=== PATIENT | male | born 1960 | race Caucasian/White ===

== ENCOUNTER 2016-09-24 15:11 | Emergency (ER) | payer OTHER ==
[2016-09-24] MEDS ORDERED: Sodium Chloride 0.9% 2.5 ML Syringe FLUSH PRN (15:32)
[2016-09-24] MEDS ORDERED: Sodium Chloride 0.9% 10 ML Syringe FLUSH PRN (15:32)
[2016-09-24] MEDS ORDERED: Morphine 2 MG/ML Syringe IVPUSH ONE (15:33)
[2016-09-24] MEDS ORDERED: Sodium Chloride 0.9% 1,000 ML IV ONE (15:33)
[2016-09-24] MEDS ORDERED: Ondansetron 4 MG/2 ML SDV IVPUSH ONE (15:33)
--- NOTE | 2016-09-24 15:34 | EDM.PDOC ---
ED HISTORY OF PRESENT ILLNESS - General Chief Complaint: Respiratory Problem Stated Complaint: COLLAPSED LUNG, FLUID Time Seen by Provider: 09/24/16 15:13 Source of Information: Reports: Patient History Limitations: Reports: No limitations - History of Present Illness INITIAL COMMENTS - FREE TEXT/NARRATIVE: History of present illness: [] 3 days ago patient was [place] on a bump[place] road and had to wear a mask he felt a sudden pain in his right lower chest. He had to do this 2 more times each time the pain got worse and shortness of breath worsened. Today he woke up with fevers and chills decided to be evaluated. Patient denies having any other chest wall trauma or previous injury or history of collapsed lungs. Review of systems: As per history of present illness and below otherwise all systems reviewed and negative. Past medical history: As per history of present illness and as reviewed below otherwise noncontributory. Surgical history: As per history of present illness and as reviewed below otherwise noncontributory. Social history: No reported history of drug or alcohol abuse. Family history: As per history of present illness and as reviewed below otherwise noncontributory. Physical exam: General: Well developed, well nourished in NAD HEENT: Atraumatic, normocephalic, pupils reactive, negative for conjunctival pallor or scleral icterus, mucous membranes moist, throat clear, neck supple, nontender, trachea midline. Lungs: Clear to auscultation, breath sounds equal bilaterally, chest nontender. Heart: S1S2, regular, negative for clicks, rubs, or JVD. Abdomen: Soft, nondistended, nontender. Negative for masses or hepatosplenomegaly. Negative for costovertebral tenderness. Pelvis: Stable nontender. Genitourinary: Deferred. Rectal: Deferred. Extremities: Atraumatic, negative for cords or calf pain. Neurovascular unremarkable. Neuro: Awake, alert, oriented. Cranial nerves II through XII unremarkable. Cerebellum unremarkable. Motor and sensory unremarkable throughout. Exam nonfocal. Diagnostics: []ct chest showing pneumonia with parapneumonic effusion. also a 5mm lung nodule Therapeutics: []IV abx, ceftriaxone and zithromax given Impression: []pneumonia Plan: []Pt refuses admission and wants to go home lowest 02 sats are 92 %, but will send home with inhalers, abx and pain meds Definitive disposition and diagnosis as appropriate pending reevaluation and review of above. - Related Data Allergies/ADRs: Allergies Allergy/AdvReac Type Severity Reaction Status Date / Time No Known Allergies Allergy Verified 09/24/16 15:27 Home Meds: Home Meds Azithromycin [Zithromax] 250 mg PO DAILY #6 tablet 09/24/16 [Rx] Lisinopril 20 mg PO DAILY 09/24/16 [History] traMADol HCl [Tramadol HCl] 50 mg PO Q6H PRN #20 tablet 09/24/16 [Rx] ED ROS GENERAL - Review of Systems Review Of Systems: See Below (See history of present illness) ED EXAM, GENERAL - Physical Exam Exam: See Below (History of present illness) Course - Vital Signs Last Recorded V/S: Last Vital Signs Temp 38.7 C H 09/24/16 15:28 Pulse 101 H 09/24/16 15:28 Resp 18 09/24/16 15:28 BP 135/78 09/24/16 15:28 Pulse Ox 94 L 09/24/16 15:28 - Orders/Labs/Meds Orders: Active Orders 24 hr Category Date Time Status Chest w Cont [CT] Stat Exams 09/24/16 16:52 Taken CULTURE BLOOD [BC] Stat Lab 09/24/16 16:12 Received CULTURE BLOOD [BC] Stat Lab 09/24/16 16:39 Received CULTURE URINE [RM] Stat Lab 09/24/16 15:35 Received LACTIC ACID,WHOLE BLOOD [BG] Stat Lab 09/24/16 18:14 Ordered Sodium Chloride 0.9% [Saline Flush] Med 09/24/16 15:32 Active 10 ml FLUSH ASDIRECTED PRN Sodium Chloride 0.9% [Saline Flush] Med 09/24/16 15:32 Active 2.5 ml FLUSH ASDIRECTED PRN cefTRIAXone [Rocephin in Dextrose,Iso-Osm 1 GM/50 ML] 1 Med 09/24/16 18:17 Ordered gm Premix Bag 1 bag IV ONETIME Blood Culture x2 Reflex Set [OM.PC] Stat Oth 09/24/16 15:59 Ordered Peripheral IV Insertion Adult [OM.PC] Stat Oth 09/24/16 15:32 Ordered Medication Orders Ceftriaxone Sodium/Dextrose 1 (gm/ Premix) 50 mls @ 100 mls/hr IV ONETIME ONE Stop: 09/24/16 18:46 Sodium Chloride (Saline Flush) 10 ml FLUSH ASDIRECTED PRN PRN Reason: Keep Vein Open Sodium Chloride (Saline Flush) 2.5 ml FLUSH ASDIRECTED PRN PRN Reason: Keep Vein Open Labs: Laboratory Tests 09/24/16 09/24/16 09/24/16 Range/Units 15:35 15:35 15:35 WBC 16.85 H (4.0-11.0) K/uL RBC 4.53 (4.50-5.90) M/uL Hgb 13.9 (13.0-17.0) g/dL Hct 41.7 (38.0-50.0) % MCV 92.1 (80.0-98.0) fL MCH 30.7 (27.0-32.0) pg MCHC 33.3 (31.0-37.0) g/dL RDW Std Deviation 44.0 (28.0-62.0) fl RDW Coeff of Joanna 13 (11.0-15.0) % Plt Count 306 (150-400) K/uL MPV 9.70 (7.40-12.00) fL Neut % (Auto) 81.9 H (48.0-80.0) % Lymph % (Auto) 9.0 L (16.0-40.0) % [place] % (Auto) 7.1 (0.0-15.0) % Eos % (Auto) 1.8 (0.0-7.0) % Baso % (Auto) 0.2 (0.0-1.5) % Neut # (Auto) 13.8 H (1.4-5.7) K/uL Lymph # (Auto) 1.5 (0.6-2.4) K/uL [place] # (Auto) 1.2 H (0.0-0.8) K/uL Eos # (Auto) 0.3 (0.0-0.7) K/uL Baso # (Auto) 0.0 (0.0-0.1) K/uL INR 1.18 H (0.86-1.11) APTT 31.3 (18.6-31.3) SEC Sodium 139 (136-146) mmol/L Potassium 3.6 (3.5-5.1) mmol/L Chloride 102 (98-110) mmol/L Carbon Dioxide 24 (21-31) mmol/L BUN 16 (6.0-23.0) mg/dL Creatinine 1.0 (0.6-1.5) mg/dL Est Cr Clr Drug Dosing TNP Estimated GFR (MDRD) > 60.0 ml/min Glucose 169 H (60-110) mg/dL Calcium 9.6 (8.8-10.8) mg/dL Total Bilirubin 0.6 (0.1-1.5) mg/dL AST 9 (5-40) IU/L ALT 14 (8-54) IU/L Alkaline Phosphatase 83 (40-150) Total Protein 8.0 (6.0-8.0) g/dL Albumin 3.7 (3.5-5.0) g/dL Globulin 4.3 H (2.0-3.5) g/dL Albumin/Globulin Ratio 0.9 L (1.3-2.8) Urine Color Urine Appearance Urine pH (5.0-8.0) Ur Specific [place] (1.001-1.035) Urine Protein (NEGATIVE) mg/dL Urine Glucose (UA) (NEGATIVE) mg/dL Urine Ketones (NEGATIVE) mg/dL Urine Occult Blood (NEGATIVE) Urine Nitrite (NEGATIVE) Urine Bilirubin (NEGATIVE) Urine Urobilinogen (<2.0) EU/dL Ur Leukocyte Esterase (NEGATIVE) Urine RBC (0-2/HPF) Urine WBC (0-5/HPF) Ur Epithelial Cells (NONE-FEW) Urine Bacteria (NEGATIVE) 09/24/16 Range/Units 15:35 WBC (4.0-11.0) K/uL RBC (4.50-5.90) M/uL Hgb (13.0-17.0) g/dL Hct (38.0-50.0) % MCV (80.0-98.0) fL MCH (27.0-32.0) pg MCHC (31.0-37.0) g/dL RDW Std Deviation (28.0-62.0) fl RDW Coeff of Joanna (11.0-15.0) % Plt Count (150-400) K/uL MPV (7.40-12.00) fL Neut % (Auto) (48.0-80.0) % Lymph % (Auto) (16.0-40.0) % [place] % (Auto) (0.0-15.0) % Eos % (Auto) (0.0-7.0) % Baso % (Auto) (0.0-1.5) % Neut # (Auto) (1.4-5.7) K/uL Lymph # (Auto) (0.6-2.4) K/uL [place] # (Auto) (0.0-0.8) K/uL Eos # (Auto) (0.0-0.7) K/uL Baso # (Auto) (0.0-0.1) K/uL INR (0.86-1.11) APTT (18.6-31.3) SEC Sodium (136-146) mmol/L Potassium (3.5-5.1) mmol/L Chloride (98-110) mmol/L Carbon Dioxide (21-31) mmol/L BUN (6.0-23.0) mg/dL Creatinine (0.6-1.5) mg/dL Est Cr Clr Drug Dosing Estimated GFR (MDRD) ml/min Glucose (60-110) mg/dL Calcium (8.8-10.8) mg/dL Total Bilirubin (0.1-1.5) mg/dL AST (5-40) IU/L ALT (8-54) IU/L Alkaline Phosphatase (40-150) Total Protein (6.0-8.0) g/dL Albumin (3.5-5.0) g/dL Globulin (2.0-3.5) g/dL Albumin/Globulin Ratio (1.3-2.8) Urine Color YELLOW Urine Appearance CLEAR Urine pH 7.0 (5.0-8.0) Ur Specific [place] 1.015 (1.001-1.035) Urine Protein NEGATIVE (NEGATIVE) mg/dL Urine Glucose (UA) NEGATIVE (NEGATIVE) mg/dL Urine Ketones NEGATIVE (NEGATIVE) mg/dL Urine Occult Blood NEGATIVE (NEGATIVE) Urine Nitrite NEGATIVE (NEGATIVE) Urine Bilirubin NEGATIVE (NEGATIVE) Urine Urobilinogen 4.0 H (<2.0) EU/dL Ur Leukocyte Esterase NEGATIVE (NEGATIVE) Urine RBC 0-2 (0-2/HPF) Urine WBC 0-1 (0-5/HPF) Ur Epithelial Cells RARE (NONE-FEW) Urine Bacteria RARE (NEGATIVE) Meds: Medications Generic Name Dose Route Start Last Admin Trade Name Freq PRN Reason Stop Dose Admin Ceftriaxone Sodium/Dextrose 1 50 mls @ 100 mls/hr 09/24/16 18:17 gm/ Premix IV 09/24/16 18:46 ONETIME ONE Sodium Chloride 10 ml 09/24/16 15:32 Saline Flush FLUSH ASDIRECTED PRN Keep Vein Open Sodium Chloride 2.5 ml 09/24/16 15:32 Saline Flush FLUSH ASDIRECTED PRN Keep Vein Open Discontinued Medications Generic Name Dose Route Start Last Admin Trade Name Freq PRN Reason Stop Dose Admin Azithromycin 500 mg 09/24/16 18:17 Zithromax PO 09/24/16 18:18 Q24H ONE Sodium Chloride 1,000 mls @ 999 mls/hr 09/24/16 15:33 09/24/16 15:47 Normal Saline IV 09/24/16 16:33 999 mls/hr .Bolus ONE Administration Iopamidol 100 ml 09/24/16 17:08 09/24/16 17:10 Isovue-370 (76%) IVPUSH 09/24/16 17:09 75 ml ONETIME STA Administration Ketorolac Tromethamine 30 mg 09/24/16 15:53 09/24/16 15:57 Toradol IVPUSH 09/24/16 15:54 30 mg ONETIME ONE Administration Morphine Sulfate 4 mg 09/24/16 15:33 09/24/16 15:53 Morphine IVPUSH 09/24/16 15:34 Not Given ONETIME ONE Ondansetron HCl 4 mg 09/24/16 15:33 09/24/16 15:53 Zofran IVPUSH 09/24/16 15:34 Not Given ONETIME ONE Departure - Departure Time of Disposition: 18:24 Disposition: Home, Self-Care 01 Condition: fair Clinical Impression: Pleural effusion Pneumonia Qualifiers: Pneumonia type: due to unspecified organism Laterality: right Lung location: unspecified part of lung Qualified Code(s): J18.9 - Pneumonia, unspecified organism Prescriptions: Azithromycin [Zithromax] 250 mg PO DAILY #6 tablet traMADol HCl [Tramadol HCl] 50 mg PO Q6H PRN #20 tablet PRN Reason: Pain Forms: ED Department Discharge - My Orders Last 24 Hours: My Active Orders 09/24/16 15:32 Sodium Chloride 0.9% [Saline Flush] 10 ml FLUSH ASDIRECTED PRN Sodium Chloride 0.9% [Saline Flush] 2.5 ml FLUSH ASDIRECTED PRN Peripheral IV Insertion Adult [OM.PC] Stat 09/24/16 15:35 CULTURE URINE [RM] Stat 09/24/16 15:59 Blood Culture x2 Reflex Set [OM.PC] Stat 09/24/16 16:12 CULTURE BLOOD [BC] Stat 09/24/16 16:39 CULTURE BLOOD [BC] Stat 09/24/16 16:52 Chest w Cont [CT] Stat 09/24/16 18:14 LACTIC ACID,WHOLE BLOOD [BG] Stat 09/24/16 18:17 cefTRIAXone [Rocephin in Dextrose,Iso-Osm 1 GM/50 ML] 1 gm Premix Bag 1 bag IV ONETIME - Assessment/Plan Last 24 Hours: My Active Orders 09/24/16 15:32 Sodium Chloride 0.9% [Saline Flush] 10 ml FLUSH ASDIRECTED PRN Sodium Chloride 0.9% [Saline Flush] 2.5 ml FLUSH ASDIRECTED PRN Peripheral IV Insertion Adult [OM.PC] Stat 09/24/16 15:35 CULTURE URINE [RM] Stat 09/24/16 15:59 Blood Culture x2 Reflex Set [OM.PC] Stat 09/24/16 16:12 CULTURE BLOOD [BC] Stat 09/24/16 16:39 CULTURE BLOOD [BC] Stat 09/24/16 16:52 Chest w Cont [CT] Stat 09/24/16 18:14 LACTIC ACID,WHOLE BLOOD [BG] Stat 09/24/16 18:17 cefTRIAXone [Rocephin in Dextrose,Iso-Osm 1 GM/50 ML] 1 gm Premix Bag 1 bag IV ONETIME
[2016-09-24] MEDS ORDERED: Ketorolac 30 MG/ML SDV IVPUSH ONE (15:53)
[2016-09-24 16:41] LABS: CHLORIDE,CL 102 mmol/L (98-110); SODIUM,NA 139 mmol/L (136-146)
[2016-09-24] MEDS ORDERED: Iopamidol 755 Mg/ML 100 ML Bottle IVPUSH STA (17:08)
[2016-09-24] MEDS ORDERED: Azithromycin 250 MG Tab PO ONE (18:17)
[2016-09-24] MEDS ORDERED: cefTRIAXone 1 GM in Premix Bag 1 BAG IV ONE (18:17)
[2016-09-24 20:09] VITALS: BP 127/68
--- NOTE | 2016-09-25 10:15 | CT ---
EXAM DATE: 09/24/16 PATIENT'S AGE: 56 Patient: CONOR FELIPE Facility: [place], [place] Site . Site : [id number] Study: CT Chest [id number]/11/2017 5:20:26 PM Ordering Physician: Naag Sharma Final Report: INDICATION: cough CT CHEST WITH CONTRAST TECHNIQUE: Multidetector CT imaging was performed through the chest following intravenous contrast administration using 75 mL Isovue 370. Coronal and sagittal reconstructions were generated. COMPARISON: None. FINDINGS: Lungs and airways: Moderately large areas of consolidation in the right lung base involving the basilar portions of the right middle lobe and right lower lobe. 5 millimeter right upper lobe lung nodule on image 36 of series 202. 1 centimeter pleural-based nodule in the left upper lobe on image 26 of series 202. Small poorly defined parenchymal opacities in the anterior left upper lobe on images 30 and 37 of series 202. Minimal left basilar atelectasis. Central airways are patent. Pleura and pleural spaces: Moderate-sized right pleural effusion. Right pleural fluid extends into the major fissure. Heart and mediastinum: Normal heart size. No significant pericardial effusion. Enlarged subcarinal lymph node measuring approximately 2.7 x 1.6 x 2.3 centimeters. Vascular structures: Normal caliber thoracic aorta. Chest wall and axillae: No mass or axillary lymphadenopathy. Osseous structures: Normal for age. No acute fractures identified. Upper abdomen: Unremarkable. IMPRESSION: 1. Right basilar lung consolidation and moderate-sized right pleural effusion, favored to represent pneumonia and parapneumonic effusion. Underlying malignancy is not excluded and follow up is recommended. 2. Indeterminate bilateral upper lobe nodules and ill-defined opacities, as detailed above. Short-term followup chest CT is recommended. 3. Nonspecific mildly enlarged subcarinal lymph node. JOSÉ LUIS BERNARD MD [employer] Dictated by Jose Alejandro Bernard MD @ 09/24/2016 5:53:18 PM Dictated by: Jose Alejandro Bernard MD @ 09/24/2016 17:56:42 (Electronic Signature) Report Signed by Proxy and Original Signed Document filed in the Medical Record. [facility]
== END 2016-09-24 19:06 | disposition home or self-care (01) ==
LOC: MW.ED 15:11
DX: J18.9 Pneumonia, unspecified organism (principal); J90 Pleural effusion, not elsewhere classified; R91.1 Solitary pulmonary nodule; Z79.899 Other long term (current) drug therapy
CPT/HCPCS: 36415; 71260; 80053; 81001; 83605; 85025; 85610; 85730; 87040; 87086; 96365; 99285; A9270; J0696; J1885; J7040; Q9967; 99284; J2270

== ENCOUNTER → 2016-09-30 | Outpatient (CLI) | payer OTHER ==
--- NOTE | 2016-09-30 12:31 | CR ---
EXAMINATION: Two-view chest (PA and Lateral views). HISTORY: Pneumonia. FINDINGS: The trachea is midline. The heart is normal in size. There is a small right pleural effusion again n oted with adjacent atelectasis and/or infiltrate. The left hemithorax appears clear. Osseous structures appear unremarkable. IMPRESSION: Grossly stable small right pleural effusion and right basilar atelectasis and/or infiltrate.
== END ==
LOC: MW.CHIM 11:22
PROVIDERS: ATTEND Internal Medicine
DX: J18.9 Pneumonia, unspecified organism (principal); J90 Pleural effusion, not elsewhere classified
CPT/HCPCS: 71020; 71020-26